=== PATIENT | male | born 1945 | race Caucasian/White ===

== ENCOUNTER 2018-02-14 17:10 | Inpatient (IN) | payer OTHER ==
[~2018-02-14] VITALS: Ht 170.2 cm; Wt 76.1 kg
[2018-02-14 17:57] LABS: HEMATOCRIT 37.2 % (38.0-50.0); HEMOGLOBIN 12.5 G/DL (12.5-16.6); MCH 28.3 PG (29.0-34.0); MCHC 33.6 G/DL (30.0-36.0); MCV 84.2 FL (86-99); PLATELET COUNT 190 K/uL (156-360); RBC DIS.WIDTH-CV 12.8 % (11.8-14.6); RBC DIS.WIDTH-SD 39.5 % (39-53); RED BLOOD COUNT 4.42 M/uL (4.00-5.50); WHITE BLOOD COUNT 10.5 K/uL (4.1-10.2)
[2018-02-14 18:08] LABS: CHLORIDE 101 mEq/L (99-109); SODIUM 134 mEq/L (136-147)
[2018-02-14 18:10] LABS: GLUCOSE 92 mg/dL (70-99)
[2018-02-14 18:14] LABS: CREATININE 0.9 mg/dL (0.6-1.3); GFR ESTIMATE (CALCULATED) > 59 mL/min/ (58.99-99999)
[2018-02-14 18:15] LABS: UREA NITROGEN (BUN) 15 mg/dL (9-23)
[2018-02-14 18:22] LABS: TROP-I INTERPRETATION NEGATIVE; TROPONIN-I < 0.01 ng/mL (0.0-0.30)
[2018-02-14] MEDS ORDERED: PERCOCET 5/31 TABLET PO (19:09)
[2018-02-14] MEDS ORDERED: MOBIC7.5 MG PO (19:09)
[2018-02-14] MEDS ORDERED: ZANAFLEX4 MG PO (19:10)
[2018-02-14] MEDS ORDERED: CO Q-10100 MG PO (19:10)
[2018-02-14] MEDS ORDERED: [UNRECOGNIZED DRUG - CODE] TP (19:11)
[2018-02-14] MEDS ORDERED: ARTIFICIALS TEA30 ML BOTH EYES (19:12)
[2018-02-14] MEDS ORDERED: FLONASE16 G1 BOTH NARES (19:12)
[2018-02-14] MEDS ORDERED: SUPER BETA PROSTATE PO (19:13)
[2018-02-14 19:51] LABS: ERTH.SED.RATE 41 MM/HR (0-20)
[2018-02-14 20:06] LABS: C-REACTIVE PROTEIN 79.1 MG/L (0-10)
[2018-02-14 20:36] LABS: HDL CHOLESTEROL 56 MG/DL (Desirable>=40); LDL CHOLESTEROL 80 mg/dL (Desirable<100); NON-HDL CHOLESTEROL 93 mg/dL (Desirable<160); TOTAL CHOLESTEROL 149 mg/dL (Desirable<200); TRIGLYCERIDES 67 MG/DL (Normal: <150)
[2018-02-14 21:19] VITALS: BP 147/69
[2018-02-14 22:30] LABS: TROP-I INTERPRETATION NEGATIVE; TROPONIN-I < 0.01 ng/mL (0.0-0.30)
[2018-02-15 00:05] VITALS: BP 124/65
[2018-02-15 01:18] LABS: INTER. NORMALIZED RATIO 1.2
[2018-02-15 01:20] LABS: PTT 25.8 SEC (25-37)
[2018-02-15 04:13] VITALS: BP 106/65
[2018-02-15 05:37] LABS: HEMATOCRIT 33.2 % (38.0-50.0); HEMOGLOBIN 11.2 G/DL (12.5-16.6); MCH 28.4 PG (29.0-34.0); MCHC 33.7 G/DL (30.0-36.0); MCV 84.1 FL (86-99); PLATELET COUNT 173 K/uL (156-360); RBC DIS.WIDTH-CV 12.8 % (11.8-14.6); RBC DIS.WIDTH-SD 38.7 % (39-53); RED BLOOD COUNT 3.95 M/uL (4.00-5.50); WHITE BLOOD COUNT 8.9 K/uL (4.1-10.2)
[2018-02-15 06:00] LABS: CHLORIDE 102 MEQ/L (99-109); CREATININE 0.9 MG/DL (0.6-1.3); GFR ESTIMATE (CALCULATED) > 59 mL/min/ (58.99-99999); GLUCOSE 101 mg/dL (70-99); POTASSIUM 4.3 MEQ/L (3.7-5.4); SODIUM 133 MEQ/L (136-147); UREA NITROGEN (BUN) 13 mg/dL (9-23)
[2018-02-15 06:27] LABS: TROP-I INTERPRETATION NEGATIVE; TROPONIN-I < 0.01 ng/mL (0.0-0.30)
[2018-02-15 08:00] VITALS: BP 118/6
[2018-02-15 10:54] LABS: HEMOGLOBIN A1c (GLYCOHEMOGLOB) 5.9 % (Below 5.7)
[2018-02-15 12:05] VITALS: BP 113/60
[2018-02-15 15:28] VITALS: BP 116/70
[2018-02-15 19:00] VITALS: BP 130/61
[2018-02-16] VITALS: BP 118/65
[2018-02-16 04:42] VITALS: BP 130/72
[2018-02-16 08:08] VITALS: BP 130/67
[2018-02-16] MEDS ORDERED: ELIQUIS5 MG PO (10:33)
[2018-02-16] MEDS ORDERED: PREDNISONE10 MG PO (10:44)
[2018-02-16] MEDS ORDERED: AUGMENTIN875 MG PO (10:44)
[2018-02-16 11:20] VITALS: BP 123/69
== END 2018-02-16 12:37 | disposition home or self-care (01) | DRG 176 ==
LOC: EME 17:10 → 4SOUTH 18:35 → EDOF 18:35 → ENRESERV 18:42 → 4SOUTH 21:12
PROVIDERS: Internal Medicine
DX: I26.99 Other pulmonary embolism without acute cor pulmonale (principal); R07.9 Chest pain, unspecified; K21.9 Gastro-esophageal reflux disease without esophagitis; M19.90 Unspecified osteoarthritis, unspecified site; R50.9 Fever, unspecified; E86.0 Dehydration; K57.90 Diverticulosis of intestine, part unspecified, without perforation or abscess without bleeding; H60.13 Cellulitis of external ear, bilateral
CPT/HCPCS: 70553; 71046; 71260; 71275; 74177; 80048; 80061; 83036; 84484; 85027; 85610; 85651; 85730; 86140; 87040; 93005; 99281; 99285; C9113; G0378; J1644; J2543; J7030; J7050